=== PATIENT | female | born 1960 | race Caucasian/White ===

== ENCOUNTER 2024-05-31 04:53 | Inpatient (IN) | payer OTHER ==
--- OUTSIDE RECORDS SUMMARY | 2024-05-31 04:56 | XMS REPORT | Continuity of Care Document ---
Author Name Unknown Address [address] [facility] [address] [place] [address] [facility] thconnect Address [address] [facility] [address] [place] [address] Care Team Providers Care Senior Security Analyst Name Role Phone Campbell Ward Primary Care Physician [phone] TIAN BARNES Attending Clinician UnavailTIAN Bautista Attending Clinician Tian Bustamante DO Attending Clinician [phone] Payers Payer Name Policy Type Policy Number Effective Date Expirati on Date Source Allergies, Adverse Reactions, Alerts Allergy Name Allergy Type Status Severity Reaction(s) Onset Date Inactive Date Treating Clinician Comments Source NO KNOWN ALLERGIE S Drug Class Active Univers [facility] Social History Social Habit Start Date Stop Date Quantity Comments Source Sexual orientation U [facility] History of tobacco use Smokes tobacco daily [facility] Alcoholic beverage intake 2024-03-10 00:00:00 2024-03-10 00:00:00 0 /d [facility] History of Social function 2024-03-10 00:00:00 2024-03-10 00:00:[address] [facility] Sex assigned at 1960 00:00:00 1960 00:00:[address] [facility] Smoking Status Start Date Stop Date Source Smokes tobacco daily 2015-07-13 00:00:[address] [facility] Medications Ordered Medication Name Filled Medication Name Start Date Stop Date Current Medication? Ordering Clinician Indication Dosage Frequency Signature (SIG) Comments Components Source olmesartan 20 mg tablet 12-09 14:24: 12 Yes 20mg Take 1 tablet by mouth in the morning. [facility] traZODone 50 mg tablet 12-09 14:24: 12 Yes 50mg Take 1 tablet by mouth at bedtime. [facility] methocarbam oL 500 mg tablet 12-09 14:24: 12 Yes 500mg Take 1 tablet by mouth as needed. [facility] latanoprost 0.005 % dpem 12-09 14:24: [address] in each eye. [facility] ALBUTEROL SULFATE (PROVENTIL ORAL) 12-09 14:07: 17 Yes Take by mouth. [facility] DULoxetine (CYMBALTA) 60 mg capsule 12-09 14:07: 17 Yes 60mg Take 1 capsule by mouth in the morning. [facility] budesonide- glycopyr-fo rmoterol (BREZTRI AEROSPHERE) 160-9-4.8 mcg/actuati on HFAA 12-09 00:00: 00 Yes [id number] 2{puff} Inhale 2 Puffs in the morning and 2 Puffs in the evening. [facility] RABEprazole 20 mg tablet 10-04 00:00: 00 Yes 20mg Take 1 tablet by mouth in the morning. [facility] Vital Signs Vital Name Observation Time Observation Value Comments Yumiko ha Systolic blood pressure 2024-03-10 16:21:00 124 mm[Hg] [facility] Diastolic blood pressure 2024-03-10 16:21:00 75 mm[Hg] [facility] Heart rate 2024-03-10 16:21:00 64 /min [facility] Respiratory rate 2024-03-10 16:21:00 18 /min [facility] Body height 2024-03-10 16:21:00 152.4 cm [facility] Body weight 2024-03-10 16:21:00 114.851 kg [facility] BMI 2024-03-10 16:21:00 49.45 kg/m2 [facility] Oxygen saturation in Arterial blood by Pulse oximetry 2024-03-10 16:21:00 98 /min [facility] Encounters Start Date/Time End Date/Time Encounter Type Admission Type Attending [facility] Care Facility Care Department Encounter ID Source 2024-04-20 00:00:00 2024-04-20 13:18:06 Telephone Tian Barnes [facility] [id number] [facility] 2024-04-15 00:00:00 2024-04-15 10:12:15 Telephone Tian Barnes [facility] [id number] [facility] 2024-03-10 11:30:00 2024-03-10 12:04:04 Outpatient R TIAN BARNES [facility] [id number] [facility] 2024-03-10 11:30:00 2024-03-10 12:04:04 Office Visit Tian Barnes [facility] [id number] [facility]
[2024-05-31] MEDS ORDERED: NA CHLORIDE 0.9% 1,000 ML ONE (05:45)
[2024-05-31 06:09] LABS: Absolute Lymphocytes (CBC) 0.7 K/uL (0.7-4.9); Absolute Monocytes 0.5 K/uL (0.1-1.3); Absolute Neutrophil 6.8 K/uL (1.8-8.0); Basophils % 0.2 % (0-1.3); Hematocrit 36.1 % (36.0-45.0); Hemoglobin 11.8 g/dL (12.0-15.0); Lymphocytes % 8.8 % (15.3-44.8); MCH 29.9 pg (27.0-35.0); MCHC 32.6 g/dL (32.0-36.0); MCV 91.7 fL (80-100); MPV 7.1 fL (7.6-11.3); Monocytes % 6.6 % (3.3-12.3); Neutrophils % 84.4 % (41.7-73.7); Platelets 278 thou/uL (152-406); RBC Red Blood Cell Count 3.94 M/uL (3.86-4.86); Red Cell Distribution Width 13.1 % (12.1-15.2)
[2024-05-31 06:30] LABS: AST/SGOT 12 U/L (15-37); Albumin 2.8 g/dL (3.4-5.0); Albumin/Globulin Ratio 0.7 (1.1-1.8); Alkaline Phosphatase 82 U/L (45-117); Anion Gap 11.2 mEq/L (5.0-15.0); BUN Blood Urea Nitrogen 30 mg/dL (7-18); Bicarbonate 24 mEq/L (21-32); Bilirubin Total 0.3 mg/dL (0.2-1.0); Globulin 4.3 g/dL (2.3-3.5); Glomerular Filtration Rate 20 ml/min (=/>90); Glucose Level 121 mg/dL (74-106); Lipase 48 U/L (13-75); Potassium 4.2 mEq/L (3.5-5.1); Protein, Total 7.1 g/dL (6.4-8.2); Sodium Level 126 mEq/L (136-145)
[2024-05-31 06:37] LABS: ALT/SGPT < 14 U/L (13-56)
--- NOTE | 2024-05-31 07:30 | RAD REPORT ---
EXAMINATION: CT ABDOMEN AND PELVIS WITHOUT CONTRAST CLINICAL INDICATION: Female, 64 years old.ABD PAIN TECHNIQUE: CT abdomen and pelvis was performed, without IV contrast, as per department protocol. Axia l, sagittal and coronal reconstructions were obtained. One or more of the following dose reduction techniques were used: Automated exposure control, adjustment of the mA and/or kV according to the pat ient size, and/or iterative reconstruction. Unless otherwise specified, incidental findings do not require dedicated imaging follow-up. [id number]. IV CONTRAST: Not administered. COMPARISON: 07/16/2016 FINDINGS: The lack of intravenous contrast limits the sensitivity of this exam for evaluation of solid visceral organs, vascular structures, and retroperitoneum. LOWER CHEST: Dependent atelectasis. No significant pericardial effusion. Coronary artery calcificatio ns present. UPPER GI: No significant abnormality. LIVER: Benign appearing and/or likely benign liver lesions without significant change since 07/16/2016 . No overtly suspicious mass. The left hepatic lobe is atrophic. GALLBLADDER/BILE DUCTS: Cholecystectomy. Mild extra-hepatic biliary ductal dilatation is likely relat ed to the post-cholecystectomy state. Consider correlating with LFT's.? PANCREAS: No mass, ductal dilation, or gagandeep-pancreatic fluid. SPLEEN: Unremarkable. ADRENALS: No adrenal masses. KIDNEYS AND URETERS: No hydronephrosis.Innumerable bilateral renal lesions of varying complexity. Bot h kidneys are significantly enlarged. ABDOMINAL AORTA AND OTHER VESSELS: Moderate atherosclerotic changes without aortic aneurysm. PERITONEUM: No abnormal free fluid. No free air. LYMPH NODES: No pathologic lymphadenopathy. ABDOMINAL WALL: Ventral hernia containing a short segment of small bowel but no evidence of bowel obs truction or complicating features. SMALL BOWEL/COLON: Small bowel has normal course and caliber. No colonic wall thickening or pericolon ic inflammatory changes.Nonvisualized appendix but no secondary signs of acute appendicitis. Mild diverticulosis without diverticulitis. URINARY BLADDER: Underdistended but grossly unremarkable. REPRODUCTIVE ORGANS: Uterus surgically absent. No adnexal abnormality. MUSCULOSKELETAL: No acute or suspicious osseous abnormality. ADDITIONAL FINDINGS: None. IMPRESSION: No acute or significant abnormalities in the abdomen or pelvis, with evaluation limited by lack of IV contrast. Polycystic kidney disease with associated liver lesions which are also likely cysts..
--- NOTE | 2024-05-31 08:15 | EDPHYS ---
Physician Documentation [facility] Name: Estefani Myers Age: 64 yrs Sex: Female : 1960 Arrival Date: 05/31/2024 Time: 04:53 Bed 19 Private MD: ED Physician Markos Argueta HPI: 05/31 05:56 This 64 yrs old Female presents to ER via EMS with complaints of Nausea. ec2 05:56 Patient arrives today for nausea without abdominal pain. Reports that symptom onset of ec2 earlier this evening. Patient reports that she is taking Zofran. Also has taken other medications including benzodiazepine as well as pain medications. Patient is generally drowsy.. Historical: - Allergies: 12:33 No Known Drug Allergies; ll1 - PMHx: 12:33 Ankylosing Spondylitis; Diabetes - NIDDM; Fibromyalgia; Hypertension; Renal Disease; ll1 Rheumatoid Arthritis; - Immunization history:: Adult Immunizations up to date. - Infectious Disease History:: Denies. - Social history:: Smoking status: Patient reports the use of cigarette tobacco products, smokes one pack cigarettes per day. Patient uses alcohol, but reports only rare drinking. ROS: 05:56 Constitutional: as per hpi ec2 Exam: 05:56 Constitutional: GEN: NAD Head: atraumatic Eyes: EOMI Ears: External ears are ec2 normal. CV: regular rate LUNGS: no respiratory distress ABD: non-distended, obese, soft, nontender, not guarding, not rigid SKIN: no evidence of rashes MSK: no evidence of trauma Vital Signs: 05:26 BP 104 / 61; Pulse 65; Resp 14 S; Temp 97.2; Pulse Ox 95% on R/A; Weight 117.03 kg; br2 Height 5 ft. 0 in. ; Pain 0/10; 06:30 BP 108 / 72; Pulse 62; Resp 16; Pulse Ox 97% on R/A; br2 07:30 BP 107 / 77; Pulse 60; Resp 18; Pulse Ox 97% ; ll1 08:27 BP 96 / 60; Pulse 62; Resp 17; Pulse Ox 100% on R/A; ll1 08:46 BP 114 / 87; Pulse 72; Resp 18; Pulse Ox 97% on R/A; ll1 11:59 BP 123 / 77; Pulse 62; Resp 17; Temp 97.2; Pulse Ox 100% on R/A; ll1 05:26 Body Mass Index 50.39 (117.03 kg, 152.4 cm) br2 05:26 Pain Scale: Adult br2 MDM: 05:05 Medical Screening Exam initiated ec2 05:56 Data reviewed: vital signs, nurses notes. ED course: Patient arrives today for nausea. ec2 Examination is unrevealing. Will obtain lab work as well as treat the patient's nausea.. 06:42 ED course: Lab values remarkable for hyponatremia with a sodium of 126, renal ec2 dysfunction with a creatinine of 2.64 and a GFR of 20. Will obtain noncontrasted abdomen and pelvis study.. 07:22 ED course: Patient signed out pending UA, CT imaging. Plan is to follow-up lab work, ec2 reassess . 08:14 Differential diagnosis: Nonspecific abd pain, gastritis, cholecystitis, pancreatitis, rn appendicitis, diverticulitis, viral gastroenteritis, gastroenteritis. Counseling: I had a detailed discussion with the patient and/or guardian regarding the historical points, exam findings, and any diagnostic results supporting the discharge/admit diagnosis, lab results, radiology results, the need for further work-up and treatment in the hospital. 05/31 05:19 Order name: CBC with Diff; Complete Time: 06:34 ec2 05/31 05:19 Order name: CMP; Complete Time: 06:41 ec2 05/31 05:19 Order name: Lipase; Complete Time: 06:41 ec2 05/31 05:19 Order name: Urinalysis w/ reflexes ec2 05/31 09:07 Order name: Creatine Phosphokinase EDMS 05/31 09:07 Order name: Osmolality, Serum EDMS 05/31 09:07 Order name: Osmolality, Urine EDMS 05/31 09:07 Order name: UR CREAT EDMS 05/31 09:07 Order name: UR POTASSIUM EDMS 05/31 09:07 Order name: UR PROTEIN EDMS 05/31 09:07 Order name: UR SODIUM EDMS 05/31 09:07 Order name: Uric Acid EDMS 05/31 06:42 Order name: CT Abd/Pelvis - Without Contrast; Complete Time: 07:42 ec2 05/31 05:19 Order name: IV Saline Lock; Complete Time: 05:57 ec2 05/31 05:19 Order name: Labs collected and sent; Complete Time: 05:57 ec2 Administered Medications: 05:48 Drug: NS 0.9% IV 1000 ml IV at 1 bolus Per protocol; to be given as a bolus over 60 br2 minutes Route: IV; Rate: 1 bolus; Site: right antecubital; 07:30 Follow up: Response: No adverse reaction; IV Status: Completed infusion; IV Intake: ll1 1000ml Disposition Summary: 05/31/24 08:15 Hospitalization Ordered Notes: Hospitalization Status: Inpatient Admission rn Provider: Olvin Wilkins rn Location: Telemetry/MedSurg (Inpatient) rn Condition: Stable rn Problem: new rn Symptoms: have improved rn Bed/Room Type: Standard rn Room Assignment: [facility](05/31/24 12:01) eb Diagnosis - Acute kidney failure, unspecified rn - Dehydration rn - Nausea with vomiting, unspecified rn Forms: - Medication Reconciliation Form rn - SBAR form rn - Leadership Thank You Letter rn Signatures: Dispatcher [employer] [facility] Markos Argueta MD MD rn Botello, Elizabeth eb Lewis, Lynsay, RN RN ll1 Sukh Kelley MD MD ec2 Stephy Muniz RN RN br2 Corrections: (The following items were deleted from the chart) 06:42 06:42 Abdomen Pelvis Wo Con+CT.RAD.BRZ ordered. [facility] 12:01 08:15 rn eb
--- NOTE | 2024-05-31 08:15 | ER ---
Nurse's Notes [facility] Name: Estefani Myers Age: 64 yrs Sex: Female : 1960 Arrival Date: 05/31/2024 Time: 04:53 Bed 19 Private MD: Diagnosis: Acute kidney failure, unspecified;Dehydration;Nausea with vomiting, unspecified Presentation: 05/31 05:26 Chief complaint: Patient states: PT STATE SHE WOKE UP AT 2AM WITH RIGHT EAR PAIN, br2 NAUSEA, AND LIGHTHEADED SO SHE TOOK HYDROCODONE 5MG, ZOFRAN, PCN. PER EMS PT TOOK ATIVAN, TRIAZIDONE PRIOR TO GOING TO BED. PT ARRIVES TO ER WITH SLURRED SPEECH AND FATIGUE....FALLING ASLEEP DURING TRIAGE. Coronavirus screen: Client denies travel out of the [place] in the last 14 days. Ebola Screen: Patient denies exposure to infectious person. Patient denies travel to an Ebola-affected area in the 21 days before illness onset. Initial Sepsis Screen: Does the patient meet any 2 criteria? Does the patient have a suspected source of infection? No. Patient's initial sepsis screen is negative. Risk Assessment: Do you want to hurt yourself or someone else? Patient reports no desire to harm self or others. Onset of symptoms was May 31, 2024 at 02:00. 05:26 Method Of Arrival: EMS: [facility] br2 05:26 Acuity: TAMEKA 3 br2 Triage Assessment: 05:26 General: Appears in no apparent distress. obese, Behavior is calm, cooperative, drowsy. br2 Pain: Denies pain. EENT: Reports RIGHT EAR PAIN POTLINE MONITOR . Neuro: [place] Agitation-Sedation Scale (RASS): 0 - Alert and Calm Level of Consciousness is awake, obeys commands, lethargic, Oriented to person, place, time, situation. Cardiovascular: Capillary refill < 3 seconds. Respiratory: Airway is patent Respiratory effort is even, unlabored, Respiratory pattern is regular, symmetrical. GI: Reports nausea. Historical: - Allergies: 12:33 No Known Drug Allergies; ll1 - PMHx: 12:33 Ankylosing Spondylitis; Diabetes - NIDDM; Fibromyalgia; Hypertension; Renal Disease; ll1 Rheumatoid Arthritis; - Immunization history:: Adult Immunizations up to date. - Infectious Disease History:: Denies. - Social history:: Smoking status: Patient reports the use of cigarette tobacco products, smokes one pack cigarettes per day. Patient uses alcohol, but reports only rare drinking. Screenin:30 [facility] ED Fall Risk Assessment (Adult) History of falling in the last 3 months, br2 including since admission No falls in past 3 months (0 pts) Confusion or Disorientation No (0 pts) Intoxicated or Sedated No (0 pts) Impaired Gait No (0 pts) Mobility Assist Device Used No (0 pt) Altered Elimination No (0 pt) Score/Fall Risk Level 0 - 2 = Low Risk Oriented to surroundings, Maintained a safe environment. Abuse screen: Denies threats or abuse. Denies injuries from another. Nutritional screening: No deficits noted. Tuberculosis screening: No symptoms or risk factors identified. Assessment: 05:33 Reassessment: SEE TRIAGE ASSESSMENT. GI: Reports nausea. br2 06:31 Reassessment: Patient and/or family updated on plan of care and expected duration. Pain br2 level reassessed. Patient is alert, oriented x 3, equal unlabored respirations, skin warm/dry/pink. Patient denies pain at this time. 07:30 Reassessment: No changes from previously documented assessment. back from CT. ll1 08:27 Reassessment: No changes from previously documented assessment. Patient and/or family ll1 updated on plan of care and expected duration. Pain level reassessed. Patient is alert, oriented x 3, equal unlabored respirations, skin warm/dry/pink. Patient states feeling better. 09:30 Reassessment: No changes from previously documented assessment. ll1 10:30 Reassessment: No changes from previously documented assessment. Patient and/or family ll1 updated on plan of care and expected duration. Pain level reassessed. 11:30 Reassessment: Patient and/or family updated on plan of care and expected duration. Pain ll1 level reassessed. Patient states feeling better. 12:00 Reassessment: No changes from previously documented assessment. Patient and/or family ll1 updated on plan of care and expected duration. Pain level reassessed. Patient is alert, oriented x 3, equal unlabored respirations, skin warm/dry/pink. Patient states feeling better. Vital Signs: 05:26 BP 104 / 61; Pulse 65; Resp 14 S; Temp 97.2; Pulse Ox 95% on R/A; Weight 117.03 kg; br2 Height 5 ft. 0 in. ; Pain 0/10; 06:30 BP 108 / 72; Pulse 62; Resp 16; Pulse Ox 97% on R/A; br2 07:30 BP 107 / 77; Pulse 60; Resp 18; Pulse Ox 97% ; ll1 08:27 BP 96 / 60; Pulse 62; Resp 17; Pulse Ox 100% on R/A; ll1 08:46 BP 114 / 87; Pulse 72; Resp 18; Pulse Ox 97% on R/A; ll1 11:59 BP 123 / 77; Pulse 62; Resp 17; Temp 97.2; Pulse Ox 100% on R/A; ll1 05:26 Body Mass Index 50.39 (117.03 kg, 152.4 cm) br2 05:26 Pain Scale: Adult br2 ED Course: 04:54 Patient arrived in ED. [email or web address] 05:04 Sukh Kelley MD is Attending Physician. ec2 05:26 Stephy Muniz RN is Primary Nurse. br2 05:30 Triage completed. br2 05:30 Patient has correct armband on for positive identification. Placed in gown. Bed in low br2 position. Call light in reach. Side rails up X 1. Provided Education on: PLAN OF CARE. 05:57 Inserted saline lock: 20 gauge in right antecubital area, using aseptic technique. af3 Blood collected. Flushed with 10 mL NS. 07:11 CT Abd/Pelvis - Without Contrast In Process Unspecified. EDMS 07:22 Attending Physician role handed off by Sukh Kelley MD ec2 07:22 Markos Argueta MD is Attending Physician. ec2 08:14 Olvin Wilkins is Hospitalizing Provider. rn 08:23 Report received from supervisor rolling room RN. Patient going to CT via stretcher now. ll1 08:28 Primary Nurse role handed off by Stephy Muniz RN ll1 08:28 Sandhya Burris, GREY is Primary Nurse. ll1 08:39 Inserted saline lock: 24 gauge in left wrist, using aseptic technique. Flushed with 10 em1 mL NS IV discontinued, intact, bleeding controlled, No redness/swelling at site. Pressure dressing applied. 11:49 No provider procedures requiring assistance completed. Patient admitted, IV remains in ll1 place. 12:01 Patient n/a. ll1 Administered Medications: 05:48 Drug: NS 0.9% IV 1000 ml IV at 1 bolus Per protocol; to be given as a bolus over 60 br2 minutes Route: IV; Rate: 1 bolus; Site: right antecubital; 07:30 Follow up: Response: No adverse reaction; IV Status: Completed infusion; IV Intake: ll1 1000ml Medication: 08:28 VIS not applicable for this client. ll1 Intake: 07:30 IV: 1000ml; Total: 1000ml. ll1 Outcome: 08:15 Decision to Hospitalize by Provider. rn 11:49 Condition: stable ll1 11:49 Instructed on the need for admit, 12:00 Admitted to Med/surg ll1 12:03 Admitted to Med/surg accompanied by tech, via stretcher, room 214, with chart, Report ll1 called to faxed to 2nd 12:32 Patient left the ED. 1 Signatures: Dispatcher [employer] EDMarkos Edmonds MD MD rn Martinez, Eric em1 Sandhya Burris RN RN ll1 Bella Tucker [email or web address] Sukh Kelley MD MD ec2 Stephy Muniz RN RN br2 Alexia Roberts3 Corrections: (The following items were deleted from the chart) 06:31 06:30 Pulse 62bpm; Resp 16bpm; Pulse Ox 97% RA; br2 br2
[2024-05-31 10:38] LABS: Uric Acid 5.6 mg/dL (2.6-6.0)
--- NOTE | 2024-05-31 12:00 | P.HP ---
Certification for Inpatient Patient admitted to: Inpatient With expected LOS: >2 Midnights Patient will require the following post-hospital care: None Practitioner: I am a practitioner with admitting privileges, knowledge of patient current condition, hospital course, and medical plan of care. Services: Services provided to patient in accordance with Admission requirements found in Title 42 Section 412.3 of the Code of Federal Regulations Patient History Date of Service: 05/31/24 Reason for admission: Hyponatremia, MIREYA History of Present Illness: 64-year-old female presents Emergency Department with chief complaint of nausea. She reports that she had a recent dental procedure on Saturday 05/26 and she has been on amoxicillin and pain medicine since then. She reports that she has been told she had low sodium in the past around a year ago, she thinks level was around 129 but she cannot be sure. She also reports some degree of CKD but she is unsure of her baseline renal function. Most recently in our hospital her kidney function was 1.[address] abdomen was negative for acute findings, ED read wishes to admit patient for hyponatremia, acute kidney injury. She is given 1 L of NS in the ED. Allergies No Known Drug Allergies Allergy (Verified 05/18/15 15:02) Unknown No Allergy (Uncoded 04/19/17 15:49) Unknown No Known Allergy (Uncoded 01/03/17 21:29) Unknown Home Medications: Duloxetine HCl [Cymbalta] 60 mg PO DAILY 02/22/15 Pantoprazole [Protonix Tab*] 40 mg PO DAILY 02/22/15 Simvastatin [Zocor*] 40 mg PO BEDTIME 02/22/15 clonazePAM [Klonopin*] 0.5 mg PO TIDP PRN 02/22/15 Trazodone [Desyrel*] 100 mg PO BEDTIME PRN 07/16/16 Amlodipine [Norvasc*] 0.5 tab PO DAILY #30 tab 07/19/16 Ciprofloxacin HCl 500 mg PO BID #20 tablet 07/19/16 - Past Medical/Surgical History Diabetic: Yes -: high cholesterol -: depression -: anxiety -: htn -: polycystic kidney -: liver cysts -: Sleep apnea -: ra -: right lens implant -: hernia repair -: hysterectomy -: 2 c sections -: carol -: appy Psychosocial/ Personal History: Lives at home alone - Family History Mother -: Stroke, Kidney disease Notes: kidney transplant - Social History Alcohol use: No CD- Drugs: No Caffeine use: Yes Place of Residence: Home Review of Systems 10-point ROS is otherwise unremarkable Gastrointestinal: Nausea Physical Examination - Physical Exam General: Alert, In no apparent distress, Oriented x3 HEENT: Atraumatic, PERRLA, Mucous membr. moist/pink, EOMI Neck: Supple, 2+ carotid pulse no bruit, No LAD Respiratory: Clear to auscultation bilaterally, Normal air movement Cardiovascular: Regular rate/rhythm, Normal S1 S2 Gastrointestinal: Normal bowel sounds, No tenderness Musculoskeletal: No tenderness Integumentary: No rashes Neurological: Normal gait, Normal speech, Normal strength at 5/5 x4 extr, Normal tone, Normal affect - Studies Laboratory Data (last 24 hrs) 05/31/24 05/31/24 05:42 05:42 WBC 8.00 Hgb 11.8 L Hct 36.1 Plt Count 278 Sodium 126 L Potassium 4.2 BUN 30 H Creatinine 2.64 H Glucose 121 H Total Bilirubin 0.3 AST 12 L ALT < 14 Alkaline Phosphatase 82 Lipase 48 Assessment and Plan - Plan Assessment: Hyponatremia acute kidney injury superimposed on CKD-unknown baseline Hypertension Hyperlipidemia Anxiety Plan: Hyponatremia Patient reports being told she had low sodium in the past Suspect acute on chronic hyponatremia Given 1 L NS Will hold off on additional IV fluids, repeat chemistry Nephrology consulted given hyponatremia and MIREYA acute kidney injury superimposed on CKD-unknown baseline Patient was aware she has CKD but unknown baseline renal function 2017 creatinine was 1.29 Nephrology consulted, renal ultrasound ordered Hypertension Hyperlipidemia Anxiety Continue home medication, hold FCO/ARB for now DVT PPX: Heparin subcu Code status: Full Discharge Plan: Home Plan to discharge in: 48 Hours - Advance Directives Does patient have a Living Will: No Does patient have a Durable POA for Healthcare: No - Code Status/Comfort Care Code Status Assessed: Yes (Full code) Critical Care: No Time Spent Managing Pts Care (In Minutes): 62
[2024-05-31] MEDS ORDERED: ACETAMINOPHEN 325 MG TABLET PO PRN (12:47)
[2024-05-31 13:05] VITALS: O2SAT 100
--- NOTE | 2024-05-31 13:49 | P.CNS ---
Date of Consult: 05/31/24 Reason for Consult: Gigi , Hypona Chief Complaint: Hyponatremia, GIGI History of Present Illness: 64 Y O F with Hx of HTN , Polycystic Kidney disease. CKD stage 4 who presented with Nausea , not feeling well for the last few days.. pt had dental procedure and has been taking amoxicillin for 5 days along with [place] for pain .. has been having sore throat , cough , ear pain along with Nausea and poor oral intake , no fever or chills.. pt last seen kidney doctor when she was told that she has stage 4 kidney disease , her MOm has the same .. Allergies No Known Drug Allergies Allergy (Verified 05/18/15 15:02) Unknown No Allergy (Uncoded 04/19/17 15:49) Unknown No Known Allergy (Uncoded 01/03/17 21:29) Unknown Home Medications: Duloxetine HCl [Cymbalta] 60 mg PO DAILY 02/22/15 Pantoprazole [Protonix Tab*] 20 mg PO DAILY 02/22/15 Simvastatin [Zocor*] 20 mg PO 1X 02/22/15 Trazodone [Desyrel*] 50 mg PO BEDTIME PRN 07/16/16 Lorazepam [Ativan] 0.5 mg PO TID 05/31/24 Olmesartan Medoxomil 20 mg PO DAILY 05/31/24 - Past Medical/Surgical History Diabetic: Yes -: high cholesterol -: depression -: anxiety -: htn -: polycystic kidney -: liver cysts -: Sleep apnea -: ra -: right lens implant -: hernia repair -: hysterectomy -: 2 c sections -: carol -: appy Psychosocial/ Personal History: Lives at home alone - Family History Mother Medical History: Stroke, Kidney disease Notes: kidney transplant - Social History Smoking Status: Current every day smoker Alcohol use: No CD- Drugs: No Caffeine use: Yes Place of Residence: Home Review of Systems General: Weakness ENT: Ear Pain Respiratory: Cough Gastrointestinal: Nausea Physical Examination Temp Pulse Resp BP Pulse Ox 97.2 F 62 17 123/77 97 05/31/24 13:04 05/31/24 13:04 05/31/24 13:04 05/31/24 13:04 05/31/24 12:44 General: Alert, In no apparent distress, Oriented x3 HEENT: Atraumatic Respiratory: Diminished Cardiovascular: No edema Gastrointestinal: Normal bowel sounds Integumentary: No rashes Neurological: Normal speech External genitalia: No edema Laboratory Data (last 24 hrs) 05/31/24 05/31/24 05:42 05:42 WBC 8.00 Hgb 11.8 L Hct 36.1 Plt Count 278 Sodium 126 L Potassium 4.2 BUN 30 H Creatinine 2.64 H Glucose 121 H Total Bilirubin 0.3 AST 12 L ALT < 14 Alkaline Phosphatase 82 Lipase 48 Conclusions/Impression: CKD stage 4 , polycystic kidney disease , by CT , no Hydronephrosis MOm with Hx of polycystic kidney disease , only on Olmasartan at home , 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
[2024-05-31 15:28] VITALS: BMI 50.3
[2024-05-31] MEDS: HEPARIN 5000 UNIT/ML 1 ML VIAL SQ SCH (16:12)
[2024-05-31 16:37] LABS: Specific Gravity 1.006 (1.005-1.030); Urine Bilirubin NEGATIVE (Negative); Urine Blood Negative (Negative); Urine Clarity Clear (Clear); Urine Color Colorless (Yellow); Urine Glucose NEGATIVE (Negative); Urine Ketones NEGATIVE (Negative); Urine Microscopic Reflex YN NO UMIC; Urine Nitrite NEGATIVE (Negative); Urine Protein NEGATIVE (Negative); Urine Urobilinogen Normal (Normal)
[2024-05-31 16:46] LABS: Anion Gap 11.4 mEq/L (5.0-15.0); Potassium 4.4 mEq/L (3.5-5.1)
[2024-05-31 16:47] LABS: UR PROTEIN 16.4 mg/dL (<11.9)
--- NOTE | 2024-05-31 17:27 | RAD REPORT ---
EXAMINATION: US RETROPERITONEUM CLINICAL INDICATION: matilde TECHNIQUE: Real-time ultrasonography of the abdomen was performed. COMPARISON: Same day CT FINDINGS: RIGHT KIDNEY: Right renal length measures 16.1 cm and is enlarged. No hydronephrosis. Numerous cysts are present. No solid mass identified. LEFT KIDNEY: Left renal length measures 17 cm and is enlarged. No hydronephrosis. Numerous cysts are present. No solid mass identified. ADDITIONAL FINDINGS: None. IMPRESSION: No evidence of hydronephrosis. Marked bilateral renal enlargement with numerous cysts consistent with polycystic kidney disease.
[2024-05-31] MEDS: NA CHLORIDE 0.9% 1,000 ML IV SCH (17:40)
[2024-05-31] MEDS: HYDROCODONE/APAP 5/325 MG TAB PO PRN (18:33)
[2024-06-01] MEDS ORDERED: TRAZODONE 50 MG TABLET PO PRN (06:23)
[2024-06-01 06:51] LABS: Absolute Basophils 0.1 K/uL (0-0.5); Absolute Lymphocytes (CBC) 1.4 K/uL (0.7-4.9); Absolute Monocytes 0.6 K/uL (0.1-1.3); Absolute Neutrophil 4.4 K/uL (1.8-8.0); Basophils % 1.1 % (0-1.3); Hematocrit 33.6 % (36.0-45.0); Hemoglobin 11.2 g/dL (12.0-15.0); Lymphocytes % 21.1 % (15.3-44.8); MCH 30.5 pg (27.0-35.0); MCHC 33.4 g/dL (32.0-36.0); MCV 91.2 fL (80-100); MPV 7.3 fL (7.6-11.3); Neutrophils % 67.8 % (41.7-73.7); Nucleated Red Blood Cells % 0.1 % (0-0); Platelets 265 thou/uL (152-406); RBC Red Blood Cell Count 3.68 M/uL (3.86-4.86); Red Cell Distribution Width 13.4 % (12.1-15.2)
[2024-06-01 07:25] LABS: AST/SGOT 12 U/L (15-37); Albumin 2.5 g/dL (3.4-5.0); Albumin/Globulin Ratio 0.7 (1.1-1.8); Alkaline Phosphatase 67 U/L (45-117); Anion Gap 10.9 mEq/L (5.0-15.0); BUN Blood Urea Nitrogen 30 mg/dL (7-18); Bicarbonate 22 mEq/L (21-32); Bilirubin Total 0.3 mg/dL (0.2-1.0); Globulin 3.8 g/dL (2.3-3.5); Glomerular Filtration Rate 21 ml/min (=/>90); Glucose Level 95 mg/dL (74-106); Magnesium 1.7 mg/dL (1.6-2.4); Potassium 4.9 mEq/L (3.5-5.1); Protein, Total 6.3 g/dL (6.4-8.2); Sodium Level 127 mEq/L (136-145)
[2024-06-01 07:44] LABS: ALT/SGPT < 14 U/L (13-56)
[2024-06-01] MEDS ORDERED: CHLORASEPTIC LOZENGES PO PRN (08:33)
[2024-06-01] MEDS: PANTOPRAZOLE 40MG TABLET PO SCH (09:19)
[2024-06-01] MEDS: DULOXETINE 30 MG CAP PO SCH (09:19)
[2024-06-01] MEDS: AMOX/K CLAV 875 MG TAB PO SCH (09:19)
[2024-06-01] MEDS: LORAZEPAM 0.5 MG TABLET PO SCH (09:19)
[2024-06-01] MEDS: NICOTINE 21 MG/PAT TD SCH (09:20)
[2024-06-01] MEDS: ONDANSETRON 4 MG/2 ML VIAL IV PRN (10:50)
[2024-06-01 13:07] VITALS: BP 132/60; TEMP 97.9
--- NOTE | 2024-06-01 13:09 | P.DS ---
Admission Date: 05/31/24 Discharge Date: 06/01/24 Disposition: ROUTINE DISCHARGE Discharge Condition: GOOD Reason for Admission: Hyponatremia, MIREYA Brief History of Present Illness: 64-year-old female presents Emergency Department with chief complaint of nausea. She reports that she had a recent dental procedure on Saturday 05/26 and she has been on amoxicillin and pain medicine since then. She reports that she has been told she had low sodium in the past around a year ago, she thinks level was around 129 but she cannot be sure. She also reports some degree of CKD but she is unsure of her baseline renal function. Most recently in our hospital her kidney function was 1.[address] abdomen was negative for acute findings, ED read wishes to admit patient for hyponatremia, acute kidney injury. She is given 1 L of NS in the ED. Hospital Course: Assessment: Hyponatremia acute kidney injury superimposed on CKD-unknown baseline Hypertension Hyperlipidemia Anxiety Patient was admitted to the hospital for MIREYA, hyponatremia. It was unclear what her renal baseline was on admission but it is believed that she had CKD 4 previously diagnosed. She was admitted to the hospital, given gentle hydration with NS, had some mild improvement in her sodium from 126-128, back down to 127 today. Creatinine on admission was 2.64, down to 2.47 at discharge. She was seen by nephrology who recommends further management as an outpatient, they did recommend reducing her duloxetine dose from 60 to 30 mg as there could be some component of SIADH related to it. New prescription for 30 mg duloxetine sent to pharmacy [facility] in [place]. Patient is stable at this time, requesting to be discharged today. She also does appear to have otitis media and a recent dental procedure which she is currently taking amoxicillin for, recommend she continues to complete the course of oral amoxicillin that she has at home. Continue other home occasions as previously prescribed. Vital Signs/Physical Exam: Temp Pulse Resp BP Pulse Ox 97.9 F 56 20 132/60 98 06/01/24 12:06/01/24 12:06/01/24 12:06/01/24 12:06/01/24 12:00 General: Alert, In no apparent distress, Oriented x3 HEENT: Atraumatic, PERRLA Neck: Supple, JVD not distended Respiratory: Clear to auscultation bilaterally, Normal air movement Cardiovascular: Regular rate/rhythm, Normal S1 S2 Gastrointestinal: Normal bowel sounds, No tenderness Musculoskeletal: No tenderness Integumentary: No rashes Neurological: Normal speech, Normal tone, Normal affect Laboratory Data at Discharge: WBC 6.50 thou/uL (4.3-10.9) 06/01/24 06:10 Hgb 11.2 g/dL (12.0-15.0) L 06/01/24 06:10 Hct 33.6 % (36.0-45.0) L 06/01/24 06:10 Plt Count 265 thou/uL (152-406) 06/01/24 06:10 Sodium 127 mEq/L (136-145) L 06/01/24 06:10 Potassium 4.9 mEq/L (3.5-5.1) 06/01/24 06:10 BUN 30 mg/dL (7-18) H 06/01/24 06:10 Creatinine 2.47 mg/dL (0.55-1.02) H 06/01/24 06:10 Glucose 95 mg/dL (74-106) 06/01/24 06:10 Uric Acid 5.6 mg/dL (2.6-6.0) 05/31/24 10:14 Magnesium 1.7 mg/dL (1.6-2.4) 06/01/24 06:10 Total Bilirubin 0.3 mg/dL (0.2-1.0) 06/01/24 06:10 AST 12 U/L (15-37) L 06/01/24 06:10 ALT < 14 U/L (13-56) 06/01/24 06:10 Alkaline Phosphatase 67 U/L (45-117) 06/01/24 06:10 Lipase 48 U/L (13-75) 05/31/24 05:42 Home Medications: Pantoprazole [Protonix Tab*] 20 mg PO DAILY 02/22/15 Simvastatin [Zocor*] 20 mg PO 1X 02/22/15 Trazodone [Desyrel*] 50 mg PO BEDTIME PRN 07/16/16 Lorazepam [Ativan] 0.5 mg PO TID 05/31/24 Olmesartan Medoxomil 20 mg PO DAILY 05/31/24 Duloxetine HCl 30 mg PO DAILY #30 tab 06/01/24 New Medications: Duloxetine HCl 30 mg PO DAILY #30 tab Physician Discharge Instructions: Patient was admitted to the hospital for MIREYA, hyponatremia. It was unclear what her renal baseline was on admission but it is believed that she had CKD 4 previously diagnosed. She was admitted to the hospital, given gentle hydration with NS, had some mild improvement in her sodium from 126-128, back down to 127 today. Creatinine on admission was 2.64, down to 2.47 at discharge. She was seen by nephrology who recommends further management as an outpatient, they did recommend reducing her duloxetine dose from 60 to 30 mg as there could be some component of SIADH rel ated to it. New prescription for 30 mg duloxetine sent to pharmacy [facility] in [place]. Patient is stable at this time, requesting to be discharged today. She also does appear to have otitis media and a recent dental procedure which she is currently taking amoxicillin for, recommend she continues to complete the course of oral amoxicillin that she has at home. Continue other home occasions as previously prescribed. Diet: Renal Activity: Ad sabas Followup: Sondra Bello MD [Primary Care Provider] - 1-2 Weeks Time spent managing pt's care (in minutes): 36
[2024-06-01 13:14] LABS: Anion Gap 9.8 mEq/L (5.0-15.0); Potassium 4.8 mEq/L (3.5-5.1)
--- NOTE | 2024-06-01 20:46 | P.PN ---
Date of Service: 06/01/24 Vital Signs Temp Pulse Resp BP Pulse Ox 97.9 F 56 20 132/60 98 06/01/24 12:00 06/01/24 12:00 06/01/24 12:00 06/01/24 12:00 06/01/24 12:00 Assessment/ Plan: Nephrology No dyspnea No chest pain +Appetite No acute events overnight Vitals, medications, blood work and imaging reviewed in the chart NAD. Obese. MMM. NCAT. Normal Respiratory Effort. S1S2. ND Abd. No C/C. LE Edema trace. No rash. AAO. Normal speech. CKD IV -No NSAIDs Hyponatremia -Counseled regarding fluid restriction -Reduce Cymbalta HTN with CKD -Restart Olmesartan Hypoalbuminemia -Recommend protein supplementation Anemia in chronic illness -Monitor H&H Case reviewed with the hospitalist team
[2024-06-02] MEDS ORDERED: DULOXETINE 30 MG CAP PO SCH (09:00)
== END 2024-06-01 14:45 | disposition home or self-care (01) | DRG 683 ==
LOC: ER 04:53 → ERHOLD 09:02 → 2ND 12:07
PROVIDERS: ADMIT Internal Medicine; ATTEND Internal Medicine
DX: N17.9 Acute kidney failure, unspecified (principal); E87.1 Hypo-osmolality and hyponatremia; N18.4 Chronic kidney disease, stage 4 (severe); F41.8 Other specified anxiety disorders; E78.5 Hyperlipidemia, unspecified; F41.9 Anxiety disorder, unspecified; Z90.710 Acquired absence of both cervix and uterus; Z90.49 Acquired absence of other specified parts of digestive tract
CPT/HCPCS: 36415; 74176; 76770; 80048; 80053; 81003; 82550; 82570; 83690; 83735; 83930; 83935; 84132; 84156; 84300; 84439; 84443; 84550; 85025; 96360; 96361; 99285; J1644; J2405; J7030